=== PATIENT | male | born 1955 | race Hispanic/Latino ===

== ENCOUNTER → 2017-12-16 | Outpatient (CLI) | payer OTHER | END | disposition home or self-care (01) | LOC: RAH 10:40 → EEVIPCON 10:40 | PROVIDERS: ATTEND Internal Medicine | DX: N19 Unspecified kidney failure (principal); N28.1 Cyst of kidney, acquired | CPT/HCPCS: 76770 ==

== ENCOUNTER → 2017-12-27 | Outpatient (CLI) | payer OTHER ==
[~2017-12-27] MED LIST: GADOBENATE DIMEGLUMINE 20 ML IV ONE
== END | disposition home or self-care (01) ==
LOC: EDUNIT# 15:00 → RAH 15:19
PROVIDERS: ATTEND Internal Medicine
DX: D43.2 Neoplasm of uncertain behavior of brain, unspecified (principal); J33.8 Other polyp of sinus; G93.89 Other specified disorders of brain; R90.82 White matter disease, unspecified; I12.9 Hypertensive chronic kidney disease with stage 1 through stage 4 chronic kidney disease, or unspecified chronic kidney disease; E11.22 Type 2 diabetes mellitus with diabetic chronic kidney disease; N18.3 Chronic kidney disease, stage 3 (moderate); E78.5 Hyperlipidemia, unspecified
CPT/HCPCS: 70553; A9577